=== PATIENT | female | born 1930 | race Asian ===

== ENCOUNTER 2017-01-15 08:37 | Outpatient (CLI) | payer OTHER, MEDICARE ==
[~2017-01-15 08:37] MED LIST: GLIP10TA11 PO; GLUXR500 PO; LISI-209 PO
== END 2017-01-15 20:15 | disposition home or self-care (01) ==
LOC: SMA 08:37
PROVIDERS: ATTEND Family Medicine
DX: Z12.31 Encounter for screening mammogram for malignant neoplasm of breast (principal)
CPT/HCPCS: 77067; G0202

== ENCOUNTER 2020-01-18 10:42 | Emergency (ER) | payer OTHER, MEDICAID ==
[~2020-01-18] VITALS: Ht 154.9 cm; Wt 57.2 kg
[2020-01-18 10:52] VITALS: BP_SYST 142
[2020-01-18] MEDS ORDERED: LISI10TA PO (11:57)
[2020-01-18] MEDS ORDERED: GLIP10TA21 PO (11:57)
[2020-01-18] MEDS ORDERED: LIP10 PO (11:57)
[2020-01-18] MEDS ORDERED: METF-379 PO (11:57)
[2020-01-18 12:29] LABS: BASOPHILS % (AUTO) 0.2 % (0.0-2.0); EOSINOPHILS % (AUTO) 0.2 % (0.0-4.0); HEMATOCRIT 38.2 % (36-48); HEMOGLOBIN 12.7 g/dL (12.0-16.0); LYMPHOCYTES % (AUTO) 19.6 % (20.5-51.5); MEAN CORPUSCULAR HEMOGLOBIN 29 pg (27-31); MEAN CORPUSCULAR HGB CONC 33 % (32-36); MEAN CORPUSCULAR VOLUME 86 fL (79.0-98.0); MONOCYTES # (AUTO) 0.7 K/uL (0.0-1.0); MONOCYTES % (AUTO) 6.5 % (1.7-9.3); NEUTROPHILS # (AUTO) 7.5 K/uL (1.8-7.7); NEUTROPHILS % (AUTO) 73.5 % (40.0-70.0); PLATELET COUNT (AUTO) 301 K/uL (130-430); RED BLOOD CELL COUNT(AUTO) 4.42 MIL/uL (4.2-6.2); RED CELL DISTRIBUTION WIDTH 15.1 % (9.0-15.0); WHITE BLOOD COUNT (AUTO) 10.2 K/uL (4.8-10.8)
[2020-01-18 12:37] LABS: ANION GAP 8 (5-15); CALCIUM 10.6 mg/dL (8.4-11.0); CHLORIDE 98 mmol/L (98-107); CREATININE 0.97 mg/dL (0.55-1.30); GLUCOSE 157 mg/dL (70-99); SODIUM SERUM 133 mmol/L (136-145); UREA NITROGEN, BLOOD 20 mg/dL (8-21)
[2020-01-18 12:41] LABS: PROTHROMBIN TIME 9.9 SECS (9.5-12.5)
[2020-01-18 12:42] LABS: ALANINE AMINOTRANSFERASE 32 U/L (12-78); ALBUMIN 4.1 g/dL (3.4-4.8); ASPARTATE AMINOTRANSFERASE 21 U/L (10-37); TOTAL BILIRUBIN 0.4 mg/dL (0.0-1.0)
[2020-01-18 13:23] LABS: BILIRUBIN,URINE NEGATIVE (NEGATIVE); BLOOD, URINE 1+ (NEGATIVE); CLARITY/URINE CLEAR (CLEAR); COLOR,URINE YELLOW (YELLOW); GLUCOSE,URINE NEGATIVE (NEGATIVE); KETONES,URINE NEGATIVE (NEGATIVE); LEUKOCYTE ESTERASE ,URINE NEGATIVE (NEGATIVE); NITRITE, URINE NEGATIVE (NEGATIVE); PH,URINE 6.5 (5.0-8.0); PROTEIN URINE NEGATIVE (NEGATIVE); UROBILINOGEN,URINE 0.2 (0.2-1.0)
[2020-01-18 13:34] LABS: BACTERIA,URINE FEW /HPF (None Seen); WBC,URINE 0-3 /HPF (0-3)
[2020-01-18] MEDS: MEPERIDINE HCL/PF 100 MG/ML AMP ONE ×2 (14:32→14:36)
[2020-01-18] MEDS: MIDAZOLAM HCL 5 MG/5 ML VIAL ONE ×2 (14:34→14:38)
[2020-01-18 15:57] VITALS: BP_SYST 136
== END 2020-01-18 15:08 | disposition home or self-care (01) ==
LOC: SED 10:42
DX: T17.208A Unspecified foreign body in pharynx causing other injury, initial encounter (principal); W22.8XXA Striking against or struck by other objects, initial encounter; Y93.89 Activity, other specified; Y92.89 Other specified places as the place of occurrence of the external cause; Y99.8 Other external cause status
CPT/HCPCS: 36415; 70360; 70490; 80053; 81000; 85025; 85610; 85730; 99285; J2175; J2250